=== PATIENT | male | born 1980 | race Caucasian/White ===

== ENCOUNTER 2021-04-27 10:05 | Emergency (ER) | payer OTHER, SELFPAY ==
[2021-04-27 10:30] VITALS: BP 128/85; PULSE 100; RESP 18; TEMP 36.6; O2SAT 100
--- NOTE | 2021-04-27 11:08 | ED.URI ---
HPI - URI/Sore Throat General Chief Complaint: Upper Respiratory Infection Stated Complaint: headache,sorethroat,fatigue,both ears clogged Time Seen by Provider: 04/27/21 11:00 Source: patient and RN notes reviewed Mode of arrival: ambulatory Limitations: no limitations History of Present Illness HPI Narrative: Patient presents today complaining of 5-day history of postnasal drip, body aches, fatigue, sore throat, headache. Symptoms have been worsening since onset. Denies fever or shortness of breath. He has been taking Claritin and TheraFlu as well as using throat spray without much relief. MD elicited complaint: sore throat Related Data Home Medications Medication Instructions Recorded Confirmed buspirone [BuSpar] 5 mg PO DAILY 04/27/21 04/27/21 rizatriptan 10 mg PO .PRN PRN 04/27/21 04/27/21 topiramate 04/27/21 Allergies Allergy/AdvReac Type Severity Reaction Status Date / Time No Known Allergies Allergy Verified 04/27/21 10:48 Review of Systems Review of Systems: CONSTITUTIONAL: Denies fever, chills, or sweats.+ Fatigue, body aches EYES: Denies visual changes, redness, or discharge. ENT: Denies rhinorrhea, congestion, or otalgia.+ Sore throat, postnasal drip CARDIOVASCULAR: Denies chest pain, palpitations, or edema. RESPIRATORY: Denies cough or dyspnea. GASTROINTESTINAL: Denies abdominal pain, nausea, vomiting, or diarrhea. GENITOURINARY: Denies dysuria or hematuria. SKIN: Denies rash, itching, or wounds. MUSCULOSKELETAL: Denies back pain, joint pain, or myalgia. NEUROLOGIC: Denies numbness, tingling, or weakness.+ Headache PSYCH: Denies depression or anxiety. PMFSH Comments At time of signature, I have reviewed and agree with nursing past medical, surgical, social and family history unless otherwise noted. Please see nursing chart for further information. There is no relevant family history pertinent to the presenting complaint Exam Narrative: GENERAL: Well-appearing, well-nourished, and in no acute distress. HEAD: Normocephalic, atraumatic. EYES: EOMI. No redness or drainage. Conjunctivae normal. ENT: Mucous membranes pink and moist. Nares clear. No rhinorrhea. TMs normal bilaterally. Throat erythematous with mild clear postnasal drainage and 2 small ulcerations of the posterior oropharynx. Uvula midline. NECK: Normal AROM. Supple. No lymphadenopathy. CHEST: No respiratory distress. Clear to auscultation. HEART: Regular rate and rhythm. No murmur appreciated. Normal peripheral pulses. EXTREMITIES: Normal range of motion. No edema. SKIN: Warm, dry, no rash. Capillary refill normal. Normal skin turgor. NEURO: No focal deficits. Alert and oriented x3. Gait steady. PSYCH: Normal affect. No signs of depression or anxiety. Course Vital Signs Vital signs: Vital Signs Temperature 97.9 F 04/27/21 10:30 Pulse Rate 100 04/27/21 10:30 Respiratory Rate 18 04/27/21 10:30 Blood Pressure 128/85 04/27/21 10:30 Pulse Oximetry 100 04/27/21 10:30 Temperature 97.9 F 04/27/21 10:30 Pulse Rate 100 04/27/21 10:30 Respiratory Rate 18 04/27/21 10:30 Blood Pressure 128/85 04/27/21 10:30 Pulse Oximetry 100 04/27/21 10:30 Reviewed. Pt has been instructed to follow up with his PCP regarding his elevated blood pressure today. MDM - URI/Sore Throat Differential Diagnosis Differential diagnosis: Likely upper respiratory infection, otitis media, sinusitis, viral infection, pharyngitis and other (Strep throat, COVID-19) Lab Data Attestation: I reviewed the patient's lab results. Labs: Lab Results 04/27/21 Range/Units 10:37 POC SARS CoV-2 Ag Negative (Negative) Strep Screen Presumptive Negative *(Reference Range: Negative)* Critical Care Time Critical Care Time Critical Care Time: No Discharge Plan Discharge Clinical Impression: Upper respiratory infection Qualifiers: URI type: unspecified URI Qu
== END 2021-04-27 11:20 | disposition home or self-care (01) ==
PROVIDERS: Emergency Provider Nurse Practitioner
DX: J06.9 Acute upper respiratory infection, unspecified (principal); Z20.822 Contact with and (suspected) exposure to COVID-19; F32.A Depression, unspecified
CPT/HCPCS: 87081; 87426; 87880; 99203; C9803; G0463